=== PATIENT | male | born 1950 | race Asian ===

== ENCOUNTER 2016-11-19 12:47 | Emergency (ER) | payer OTHER ==
[~2016-11-19] VITALS: Ht 172.7 cm; Wt 78.2 kg
[2016-11-19 15:02] LABS: CALCIUM 8.9 mg/dL (8.5-10.1); CARBON DIOXIDE 25.6 mmol/L (21-32); CHLORIDE SERUM 100 mmol/L (98-107); CREATININE SERUM 1.1 mg/dL (0.7-1.3); GFR1 > 60 mL/min; GLUCOSE SERUM 123 mg/dL (74-106); POTASSIUM SERUM 3.4 mmol/L (3.5-5.1); SODIUM SERUM 137 mmol/L (136-145)
[2016-11-19 15:03] LABS: BASOPHIL % 0.3 % (0-2); PLATELET COUNT 177 x10^3mcL (130-400); RED CELL DISTRIBUTION WIDTH 13.7 % (11.5-14.5)
[2016-11-19 16:21] VITALS: BP 134/72
== END 2016-11-19 16:21 | disposition home or self-care (01) ==
LOC: ED 12:47
PROVIDERS: Specialist
DX: R50.9 Fever, unspecified (principal); M79.1 Myalgia; R11.0 Nausea
CPT/HCPCS: 36415; 87804